=== PATIENT | female | born 1995 | race Caucasian/White ===

== ENCOUNTER → 2024-12-06 | Outpatient (CLI) | payer BC, MEDICAID, SELFPAY ==
[2024-12-06 14:38] LABS: Collection Type, Urine Clean Catch
[2024-12-06 15:33] LABS: Bilirubin,Urine Negative (Negative); Blood,Urine Negative (Negative); Clarity,Urine Turbid (Clear/Hazy); Color,Urine Yellow (Lt Yel-Yel); Culture Indicated,Urine Not Indicated; Glucose, Urine Negative (Negative); Ketones,Urine Negative (Negative); Leukocyte Esterase,Urine Negative (Negative); Nitrite,Urine Negative (Negative); PH,Urine 5.5 (5.0-7.0); Protein,Urine Negative (Neg - Trace); RBC,Urine 1 /hpf (0-3); Specific Gravity,Urine 1.023 (1.001-1.035); Squamous Epithelial Cell,Urine 5 /hpf (0-5); Urobilinogen,Urine Negative mg/dL (0.0-1.0); WBC,Urine 2 /hpf (0-5)
== END | disposition home or self-care (01) ==
LOC: SLDO 14:24
PROVIDERS: PCP Physician Assistant; Referring Provider Physician Assistant; Visit Provider Physician Assistant
DX: R10.9 Unspecified abdominal pain (principal)
CPT/HCPCS: 81001

== ENCOUNTER → 2024-12-07 | Outpatient (CLI) | payer BC, MEDICAID, SELFPAY ==
--- NOTE | 2024-12-07 10:52 | XR_ITS ---
Examination: CT abdomen and pelvis without contrast. Coronal 3-D reconstructions. Sagittal 2-D reconstructions. Date and time of exam:December 07, 2024 1203 hours INDICATIONS: Right lower abdominal pain beginning one week ago CTDI: vol (mGy): 5.34 DLP: (mGycm): 275 Technique: Axial images of the abdomen have been obtained, 3 mm slice thickness Intravenous contrast material has not been administered. Low dose protocols were performed. One or more of the following dose reduction techniques were used; automated exposure control, adjustment of the mA and/or KV according to patient size, use of iterative reconstruction technique. Findings: No focal liver or splenic lesion No gallstones No pancreatic or adrenal mass No renal or ureteral calculi, no hydronephrosis Aorta normal size No bowel obstruction Normal appendix Anteverted uterus with irregular uterine fundus Moderate free fluid in the pelvis Urinary bladder intact IMPRESSION: Normal appendix Irregular uterine fundus with moderate free fluid in the pelvis, recommend pelvic sonography follow-up
[2024-12-07 12:48] LABS: Collection Type, Urine Clean Catch
[2024-12-07 13:20] LABS: Basophils # (Auto) 0.0 Thou/mm3 (0.0-0.2); Basophils % (Auto) 0 % (0-2.5); Eosinophils # (Auto) 0.1 Thou/mm3 (0.0-0.5); Eosinophils % (Auto) 1 % (0-10); Hematocrit 40.7 % (36.0-46.0); Hemoglobin 13.6 g/dL (12.0-16.0); Immature Granulocytes Auto 0.01 Thou/mm3 (0.00-0.00); Lymphocytes # (Auto) 1.8 Thou/mm3 (1.0-4.8); Lymphocytes % (Auto) 25 % (10-50); Mean Corpuscular HGB Conc 33.4 g/dl (31.0-37.0); Mean Corpuscular Hemoglobin 30.0 pg (25.0-35.0); Mean Corpuscular Volume 90 fL (80-100); Monocytes # (Auto) 0.5 Thou/mm3 (0.0-0.8); Monocytes % (Auto) 7 % (0-12); Neutrophils # (Auto) 4.8 Thou/mm3 (1.8-7.7); Neutrophils % (Auto) 66 % (37-80); Nucleated Red Blood Cell # 0.00 Thou/mm3 (0.00-0.00); Nucleated Red Blood Cell % 0 /100 WBC (0); Platelet Count 179 Thou/mm3 (140-440); RDW Standard Deviation 40.5 fL (36.4-46.3); Red Blood Count 4.54 Miln/mm3 (4.00-5.20); White Blood Count 7.3 Thou/mm3 (3.6-11.0)
[2024-12-07 13:27] LABS: Bilirubin,Urine Negative (Negative); Blood,Urine Negative (Negative); Clarity,Urine Clear (Clear/Hazy); Color,Urine Lt-Yellow (Lt Yel-Yel); Culture Indicated,Urine Not Indicated; Glucose, Urine Negative (Negative); Ketones,Urine Negative (Negative); Leukocyte Esterase,Urine Negative (Negative); Nitrite,Urine Negative (Negative); PH,Urine 6.0 (5.0-7.0); Protein,Urine Negative (Neg - Trace); RBC,Urine 1 /hpf (0-3); Specific Gravity,Urine 1.024 (1.001-1.035); Squamous Epithelial Cell,Urine 6 /hpf (0-5); Urobilinogen,Urine Negative mg/dL (0.0-1.0); WBC,Urine < 1 /hpf (0-5)
[2024-12-07 13:54] LABS: Alanine Aminotransferase 8 U/L (10-49); Albumin, Serum 4.2 gm/dL (3.5-5.0); Albumin/Globulin Ratio 1.2 (1.2-2.2); Alkaline Phosphatase 57 U/L (46-116); Anion Gap 8 (7-16); Aspartate Amino Transferase 17 U/L (0-34); BUN/Creatinine Ratio 17 Ratio (12-20); Bilirubin,Total 0.4 mg/dL (0.3-1.2); Blood Urea Nitrogen 10 mg/dL (9-23); Calcium 9.0 mg/dL (8.3-10.6); Calcium (Corrected) 9.0 mg/dL (8.5-10.1); Carbon Dioxide 26.7 mMol/L (20.0-31.0); Chloride 104 mMol/L (98-107); Creatinine (Component) 0.6 mg/dL (0.6-1.3); Globulin 3.5 gm/dL (2.3-3.5); Glucose 69 mg/dL (74-106); Osmolality,Calculated 274 (275-295); Potassium 3.7 mMol/L (3.4-5.1); Sodium 139 mMol/L (136-145); Total Protein 7.7 gm/dL (5.7-8.2); eGFR > 60 See Note
== END | disposition home or self-care (01) ==
PROVIDERS: PCP Physician Assistant; Referring Provider Physician Assistant; Visit Provider Physician Assistant
DX: N85.8 Other specified noninflammatory disorders of uterus (principal); R10.9 Unspecified abdominal pain
CPT/HCPCS: 36415; 74176; 80053; 81001; 85025

== ENCOUNTER → 2024-12-12 | Outpatient (CLI) | payer BC, MEDICAID, SELFPAY ==
--- NOTE | 2024-12-12 14:17 | XR_ITS ---
Examination: Pelvic ultrasound, transabdominal, complete Technique: Transabdominal ultrasound of the pelvis performed using grayscale imaging Date and time of exam: December 12, 2024 1426 hours INDICATIONS: CT examination November 27, 2024 irregular fundus with mild right free fluid in the pelvis FINDINGS: Uterus 8.2 cm endometrial stripe 1.2 cm No uterine mass or intrauterine gestation Right ovary 3.3 cm arterial flow, solid right ovarian mass 1.6 x 1.0 x 1.3 cm which may represent a early ovarian tumor Small follicles the largest 6 mm Left ovary 2.8 cm arterial flow small follicles, the largest 11 mm Mild fluid in the cul-de-sac IMPRESSION: No uterine mass or intrauterine gestation Small solid right ovarian mass 16 x 10 x 13 mm, recommend 3 month follow-up pelvic sonography
== END | disposition home or self-care (01) ==
LOC: CDIM 13:59
PROVIDERS: PCP Family Medicine; Referring Provider Physician Assistant; Visit Provider Physician Assistant
DX: N83.8 Other noninflammatory disorders of ovary, fallopian tube and broad ligament (principal)
CPT/HCPCS: 76856

== ENCOUNTER 2024-12-28 14:47 | Outpatient (AMB) | payer BC, MEDICAID, SELFPAY ==
[2024-12-28 15:10] VITALS: BP 119/64; PULSE 16; RESP 16; TEMP 36.8; O2SAT 98; BMI 16.6
--- NOTE | 2024-12-28 15:10 | AMB.GYNCLNOT ---
Vital Signs 12/28/24 15:10 Height 1.7 m Height Method Stated Weight 48.194 kg Weight Measurement Method Standing Scale BMI 16.6 BP 119/64 Blood Pressure Source Automatic Cuff Blood Pressure Location Left Upper Arm Position Sitting Respiration 16 Pulse 16 L Pulse Source Monitor Temp 98.3 F Temp Source Oral Pulse Oximetry (%) 98 Oxygen Delivery Method Room Air Allergies/Home Meds Allergies & Medications Allergies No Known Allergies Allergy (Verified 12/28/24 15:11) Medication Reconciliation No Known Home Medications 12/28/24 [History Confirmed 12/28/24] Intake Visit Data Collection New Patient or Established: Established Patient (seen at [facility] within 3 years) Reason for Visit:: PELVIC PAIN Seen by Clinical Staff ONLY (RN/MA): No Automatic Door Mechanic Required: No Do You Feel Safe at Home: Yes Authorities Contacted: N/A PCP or OBGYN visit in last 3 months: Yes Hx Now: No Are you currently on any form of Control: Yes Last menstrual period: 12/24/24 Pain Present Currently: No Pain Scale Used: Guardado-Guajardo/Numerical Pain scale:: 0 Smoking Status Smoking Status: Never smoker 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 1. Little interest or pleasure in doing things: not at all 2. Feeling down, depressed, or hopeless: not at all Total score: 0 PHQ-9 3. Trouble falling or staying asleep, or sleeping too much: Not at all 4. Feeling tired or having little energy: Not at all 5. Poor appetite or overeating: Not at all 6. Feeling bad about yourself - or that you are a failure or have let yourself or your family down: Not at all 7. Trouble concentrating on things, such as reading the newspaper or watching television: Not at all 8. Moving or speaking so slowly that other people could have noticed? - Or the opposite - being so fidgety or restless that you have been moving around a lot more than usual: not at all 9. Thoughts that you would be better off or of hurting yourself in some way: Not at all Total score: 0 Source: Developed by Drs. Jacek Ashley, Venice Faye, Antonio Norton and colleagues, with an educational konrad from [employer]. Depression screen completed yes Social History Living Situation History Marital Status: Life Partner Lives With: Family Housing: House Tobacco History Smoking Status: Never smoker Second Hand Smoke Exposure: No Alcohol History Alcohol Intake: Current Alcohol Intake Frequency: holidays/special occasions only Domestic Abuse History Do You Feel Safe at Home: Yes History of Present Illness HPI Narrative Yane Guerrero is a 29-year-old female presenting on referral for evaluation of a pelvic mass. She reports intermittent right-sided lower pelvic pain. The patient was referred following imaging studies that revealed a small solid mass on her right ovary. She has been experiencing intermittent pain in the right lower pelvic region, though the exact onset and duration of this symptom are not specified. The patient does not report any associated symptoms or impact on daily functioning. The patient reports that her Pap smears have always been normal. Medical History: - Former smoker, quit one month ago Medications: - Ibuprofen 800 mg Social History: - Former smoker, quit one month ago Review of Systems Review of Systems Systems Reviewed: All systems reviewed, normal except as documented Exam General General Appearance: alert, in no apparent distress and healthy appearing Head Head exam: atraumatic Neck Neck exam: Present normal inspection and trachea midline Chest Chest inspection: Present normal inspection and symmetric chest wall rise External exam: Present normal external exam; Absent tenderness Neuro Neurological exam: Present oriented X3 Psych Psychiatric exam: Present normal affect and normal mood Office Procedures OB Clinic LOC & Office Proc's Nursing/Assessment Patient Status: Established Patient OB Clinic Nursing Assessment: Medication Reconciliation, Update PMH in EMR and Vital Signs OB Clinic Coordination of Care: Complex Care and Chronic Disease 1-5, Consent,records obtained, informed consent, Education Simp Pt/Fam, Lab and Imaging orders, Results/Orders obtained and Staff clarify orders Established Patient Charge Established Patient Point Assignment: 105 Established Patient Point Charge: EP Level 3 (80-115) Assessment & Plan Diagnosis / Problem List (1) Ovarian mass, right: Status: Acute Assessment and Plan: Diagnostic Test Results and Labs: - Pelvic ultrasound: Right ovarian mass 16 x 10 x 3 mm (solid), uterus 8.2 cm, endometrial stripe 1.2 mm, right ovary 3.3 cm with solid mass measuring 1.6 x 1 x 1.3 cm, left ovary 2.8 cm with small follicles - CT scan of pelvis: Irregular uterine fundus, moderate free fluid in pelvis Plan Right ovarian mass Assessment: Pelvic ultrasound reveals a small solid right ovarian mass measuring 1.[address] scan of the pelvis, performed 3-4 days prior, does not show the mass but indicates an irregular uterine fundus with moderate free fluid in the pelvis. The discrepancy between imaging modalities and the small size of the mass (< 5 cm) suggest a low likelihood of malignancy. However, further evaluation is necessary to rule out an early ovarian tumor. Plan: - Order tumor markers blood test - If tumor markers are negative: - Repeat pelvic ultrasound in 3 months - If mass persists, consider surgical removal - If any tumor markers are elevated: - Proceed with further imaging - Alternatively, obtain imaging at a separate facility if patient is anxious - Follow-up appointment in 2 weeks to review lab results - Patient to have blood drawn today at [facility] Intermittent right lower pelvic pain Assessment: Patient reports intermittent right lower pelvic pain, which may be associated with the identified ovarian mass. The pain is likely related to the mass effect or possible torsion, although the small size of the mass makes torsion less likely. Plan: - Continue ibuprofen 800 mg as needed for pain management - Monitor pain symptoms in relation to mass size and characteristics
== END 2024-12-28 15:22 | disposition home or self-care (01) ==
LOC: HODSOBC 14:47
PROVIDERS: PCP Family Medicine; Referring Provider Family Medicine; Supervising Provider Obstetrics & Gynecology; Visit Provider Obstetrics & Gynecology
DX: N83.8 Other noninflammatory disorders of ovary, fallopian tube and broad ligament (principal)
CPT/HCPCS: 99213; G0463

== ENCOUNTER → 2024-12-28 | Outpatient (CLI) | payer BC, SELFPAY ==
[2024-12-28 16:50] LABS: Beta HCG,Quantitative < 1 mIU/mL (<5.0); LDH (Lactate Dehydrogenase) 134 U/L (120-246)
[2024-12-28 17:06] LABS: CA 125 13.0 U/mL (<30.2); Carcinoembryonic Antigen < 0.0 ng/mL (0.0-5.0)
== END | disposition home or self-care (01) ==
LOC: COPL 15:32
PROVIDERS: PCP Registered Nurse; Referring Provider Obstetrics & Gynecology; Visit Provider Obstetrics & Gynecology
DX: N83.8 Other noninflammatory disorders of ovary, fallopian tube and broad ligament (principal)
CPT/HCPCS: 36415; 82378; 83615; 84702; 86304

== ENCOUNTER 2025-01-20 08:15 | Outpatient (AMB) | payer BC, SELFPAY ==
--- NOTE | 2025-01-20 08:28 | AMB.GYNCLNOT ---
Allergies/Home Meds Allergies & Medications Allergies No Known Allergies Allergy (Verified 01/20/25 08:28) Medication Reconciliation No Known Home Medications 12/28/24 [History Confirmed 01/20/25] Intake Visit Data Collection New Patient or Established: Established Patient (seen at [facility] within 3 years) Reason for Visit:: DISCUSS LAB RESULTS Seen by Clinical Staff ONLY (RN/MA): No Software Test Engineer Required: No Do You Feel Safe at Home: Yes Authorities Contacted: N/A PCP or OBGYN visit in last 3 months: Yes Hx Now: Yes Are you currently on any form of Control: Yes Last menstrual period: 01/02/25 Pain Present Currently: No Pain Scale Used: Guardado-Guajardo/Numerical Pain scale:: 0 Smoking Status Smoking Status: Never smoker For Telemed visit only Telemed Video/Phone Visit: Yes Verbal consent obtained for Telemed visit?: Yes Verbal Consent witness name: FABIO BLUNT 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 1. Little interest or pleasure in doing things: not at all 2. Feeling down, depressed, or hopeless: not at all Total score: 0 PHQ-9 3. Trouble falling or staying asleep, or sleeping too much: Not at all 4. Feeling tired or having little energy: Not at all 5. Poor appetite or overeating: Not at all 6. Feeling bad about yourself - or that you are a failure or have let yourself or your family down: Not at all 7. Trouble concentrating on things, such as reading the newspaper or watching television: Not at all 8. Moving or speaking so slowly that other people could have noticed? - Or the opposite - being so fidgety or restless that you have been moving around a lot more than usual: not at all 9. Thoughts that you would be better off or of hurting yourself in some way: Not at all Total score: 0 Source: Developed by Drs. Jacek L. GabiVenice adame, Antonio Norton and colleagues, with an educational konrad from [employer] Depression screen completed yes Social History Living Situation History Lives With: Family Housing: House Tobacco History Smoking Status: Never smoker Second Hand Smoke Exposure: No Alcohol History Alcohol Intake: Current Alcohol Intake Frequency: holidays/special occasions only Domestic Abuse History Do You Feel Safe at Home: Yes History of Present Illness HPI Narrative Televisit Yane Guerrero presents for follow-up regarding previous concerns about ovarian tumors. The patient reports no current complaints. She has been informed that her Ca125 and Ca tumor markers are within normal range and not suggestive of any ovarian tumors. ROS: Negative except as stated above, limited to GROUP CONTROLLER and pertinent complaints. Assessment & Plan Diagnosis / Problem List (1) Ovarian mass, right: Status: Acute Plan Ovarian tumor surveillance: - Ca125 and Ca tumor markers are within normal range. - None of the patient's tumor markers are suggestive of ovarian tumors. - Patient reports no current complaints. Plan: - Follow up for repeat ultrasound in 3 months.
== END 2025-01-20 13:45 | disposition home or self-care (01) ==
LOC: HODSOBC 08:15
PROVIDERS: Supervising Provider Obstetrics & Gynecology; Visit Provider Obstetrics & Gynecology
DX: N83.8 Other noninflammatory disorders of ovary, fallopian tube and broad ligament (principal)
CPT/HCPCS: 99212; G0463